=== PATIENT | male | born 1970 | race Caucasian/White ===

== ENCOUNTER → 2016-06-01 | Outpatient (CLI) | payer MEDICARE, OTHER ==
[2016-06-01 15:28] VITALS: BMI 28.3
== END | disposition home or self-care (01) ==
LOC: MNTWWP 12:41
PROVIDERS: ATTEND Family Medicine
DX: E63.9 Nutritional deficiency, unspecified (principal)

== ENCOUNTER → 2017-01-29 | Outpatient (CLI) | payer MEDICARE, OTHER ==
[2017-01-29 09:07] LABS: ALT 28 U/L (21-72); AST 69 U/L (17-59); Alkaline Phosphatase 184 U/L (38-126); Anion Gap 11 mmol/L; Blood Urea Nitrogen 22 mg/dL (9-20); Calcium 9.6 mg/dL (8.4-10.2); Carbon Dioxide 37 mmol/L (22-30); Chloride 86 mmol/L (98-107); Glucose 119 mg/dL (74-99); Non-African American GFR(MDRD) >60 (>60 ml/min/1.73 sqM); Sodium 134 mmol/L (137-145); Total Bilirubin 1.3 mg/dL (0.2-1.3); Total Protein 8.7 g/dL (6.3-8.2)
[2017-01-29 09:17] LABS: Potassium 3.5 mmol/L (3.5-5.1)
[2017-01-29 09:24] LABS: Basophils % (A) 1 %; CH 38.8; CHCM 36.3; Eosinophils # (A) 0.2 k/uL (0-0.7); Eosinophils % (A) 4 %; HCT 44.7 % (39.0-53.0); HDW 2.97; HGB 15.2 gm/dL (13.0-17.5); Luc # (Auto) 0.24; Luc % (Auto) 4; Lymphocytes # (A) 1.5 k/uL (1.0-4.8); Lymphocytes % (A) 27 %; MCH 36.7 pg (25.0-35.0); MCHC 34.1 g/dL (31.0-37.0); MCV 107.5 fL (80.0-100.0); Macrocytosis Moderate; Mean Platelet Volume 9.3; Monocytes # (A) 0.7 k/uL (0-1.0); Monocytes % (A) 13 %; Neutrophils # (A) 2.8 k/uL (1.3-7.7); Neutrophils % (A) 51 %; RBC 4.16 m/uL (4.30-5.90); RDW 14.1 % (11.5-15.5); WBC 5.5 k/uL (3.8-10.6); WBC (Perox) 5.34
== END ==
LOC: LABWHC1 07:27
PROVIDERS: ATTEND Psychiatry & Neurology Neurology
DX: G40.909 Epilepsy, unspecified, not intractable, without status epilepticus (principal); T42.6X5S Adverse effect of other antiepileptic and sedative-hypnotic drugs, sequela
CPT/HCPCS: 36415; 80053; 80177; 85025

== ENCOUNTER → 2017-09-25 | Outpatient (CLI) | payer MEDICARE, OTHER ==
[2017-09-25 11:00] VITALS: BMI 28.3
== END | disposition home or self-care (01) ==
LOC: MNTWWP 08:50
PROVIDERS: ATTEND Family Medicine
DX: E44.1 Mild protein-calorie malnutrition (principal)
CPT/HCPCS: 97802

== ENCOUNTER → 2021-08-18 | Outpatient (CLI) | payer MEDICARE, OTHER ==
[2021-08-18 18:12] LABS: African American GFR (CKD) 136.8 (60.0-200.0); Albumin 3.6 g/dL (3.8-4.9); Albumin/Globulin Ratio 0.7 (1.60-3.17); Anion Gap 10.9 mmol/L (10.00-18.00); BUN/Creat Ratio 27.72 Ratio (12.00-20.00); Blood Urea Nitrogen 15.8 mg/dL (9.0-27.0); Calcium 9.1 mg/dL (8.7-10.3); Carbon Dioxide 25.4 mmol/L (20.0-27.5); Globulin 5.1 g/dL (1.6-3.3); Non-African American GFR(CKD) 118.1 (60.0-200.0); Potassium 3.9 mmol/L (3.5-5.5); Total Bilirubin 0.9 mg/dL (0.30-1.20); Total Protein 8.6 g/dL (6.2-8.2)
[2021-08-18 18:30] LABS: INR 1.07 (0.90-1.11); Prothrombin Time 12.1 sec (9.9-11.9)
[2021-08-18 19:17] LABS: Amorphous Sediment,Urine Present /LPF (None Seen); Appearance,Urine Turbid (Clear); Bacteria,Urine 3+ /HPF (None Seen); Bilirubin,Urine Negative (Negative); Blood,Urine Large (Negative); Color,Urine Yellow (Yellow); Ketones,Urine Negative (Negative); Nitrite,Urine Negative (Negative); PH, Urine 7.5 (5.0-8.0); Specific Gravity,Urine 1.015 (1.001-1.030)
[2021-08-18 20:12] LABS: Basophils # (A) 0.02 X 10*3/uL (0.00-0.10); Basophils % (A) 0.3 %; Eosinophils # (A) 0.25 X 10*3/uL (0.04-0.35); HCT 35.4 % (39.6-50.0); HGB 11.7 g/dL (13.0-17.0); Immature Grans, Automated 0.2 %; Immature Platelet Fraction 9.7 % (1.1-6.1); Lymphocytes # (A) 2.68 X 10*3/uL (0.90-5.00); MCH 36.7 pg (27.0-32.0); MCHC 33.1 g/dL (32.0-37.0); Macrocytosis (M) 2+; Mean Platelet Volume 13.9 fL (9.5-12.2); Monocytes # (A) 0.67 X 10*3/uL (0.20-1.00); Monocytes % (A) 10.8 %; NRBC Per 100 WBC 0 /100 WBCS (0.0-0.0); Neutrophils % (A) 41.7 %; Platelet Count 64 X 10*3/uL (140-440); RBC 3.19 X 10*6/uL (4.40-5.60); RDW 14.6 % (11.5-14.5); WBC 6.23 X 10*3/uL (4.50-10.00)
== END | disposition home or self-care (01) ==
LOC: LABWHC1 12:24
PROVIDERS: ATTEND Internal Medicine Gastroenterology
DX: K74.60 Unspecified cirrhosis of liver (principal)
CPT/HCPCS: 36415; 80053; 81001; 82105; 85025; 85610; 87086

== ENCOUNTER → 2021-08-18 | Outpatient (CLI) | payer MEDICARE, OTHER | END | disposition home or self-care (01) | LOC: LABPAT 12:21 | PROVIDERS: ATTEND Urology | DX: Z53.9 Procedure and treatment not carried out, unspecified reason (principal) ==

== ENCOUNTER → 2021-08-26 | Day surgery (SDC) | payer MEDICARE, OTHER ==
--- NOTE | 2021-08-21 15:04 | P.HPIHPCON ---
History of Present Illness H&P Date: 08/21/21 Chief Complaint: Right ureteral stone This is a 51-year-old male with history of a 7 mm right-sided midureteral stone, he presented to [facility] on June 27 this year with a sepsis secondary to his ureteral stone, had a prolonged ICU admission following his s epsis. He presents today for definitive stone management. Discussed with his morning caregiver and his guardian the risk of surgery which includes but not limited to bleeding, infection, injury to the ureter. Discussed also given his history of sepsis he's at an increased risk of complications and a potential of becoming septic again following surgery. Discussed also risk from anesthesia. They understood all the risk and agreed to proceed with a right-sided ureteroscopy, with holmium laser lithotripsy, stone basketing and stent removal Consent for Procedure: I have explained the operation/procedure to the patient, including the risks, benefits, side effects, alternative therapies (including not receiving the proposed treatment or service), the likelihood of the patient achieving his/her goals, and potential recuperation problems for the procedure/sedation/analgesia, as well as any blood products, if indicated. I also explained to the patient the risks, benefits and side effects of the alternatives, as well as the risks related to not receiving the proposed procedure, care, treatment, or services. Past Medical History Past Medical History: Asthma, Seizure Disorder Additional Past Medical History / Comment(s): Severe developmentally delayed, has a peg tube,congenital quadriplegia. Incontinence. Blind, Aphasia. History of Any Multi-Drug Resistant Organisms: None Reported Additional Past Surgical History / Comment(s): peg tube Past Anesthesia/Blood Transfusion Reactions: Unable to Obtain Past Psychological History: Unable to Obtain Past Alcohol Use History: None Reported Past Drug Use History: None Reported - Past Family History Mother Family Medical History: Unable to Obtain Medications and Allergies Home Medications Medication Instructions Recorded Confirmed Type Docusate Sodium [Docusol Kids] 5 ml PEG/G-TUBE DAILY 09/10/13 02/24/15 History Famotidine [Pepcid] 20 mg PEG/G-TUBE DAILY 09/10/13 02/24/15 History Ipratropium/Albuterol Sulfate 1 ampul INHALATION BID 09/10/13 02/24/15 History [Duoneb 0.5 mg-3 mg/3 ml Soln] Loratadine [Claritin] 10 mg PEG/G-TUBE DAILY 09/10/13 02/24/15 History Polyethylene Glycol 3350 [Miralax] 1 packet PEG/G-TUBE DAILY PRN 09/10/13 02/24/15 History Valproic Acid 250 mg PEG/G-TUBE TID 09/10/13 02/24/15 History Hydrocortisone Cream 1 applic TOPICAL DAILY PRN 01/01/15 02/24/15 History [Hydrocortisone 1% Cream] Jevity 1.5 Óscar Liquid 80 ml PEG/G-TUBE DAILY 01/01/15 02/24/15 History Meclizine [Antivert] 12.5 mg PEG/G-TUBE TID 01/01/15 02/24/15 History Montelukast [Singulair] 10 mg PEG/G-TUBE HS 01/01/15 02/24/15 History Nystatin 100,000 Unit/gm Powd 1 gm TOPICAL DAILY PRN 01/01/15 02/24/15 History [Mycostatin Powder] Vitamin D(Unknown Dose) 1 tab PEG/G-TUBE DAILY 01/01/15 02/24/15 History Allergies Allergy/AdvReac Type Severity Reaction Status Date / Time eucalyptol Allergy Unknown Verified 02/24/15 08:06 [From Listerine Antiseptic] ibuprofen Allergy Unknown Verified 02/24/15 08:06 influenza virus vaccine, Allergy Unknown Verified 02/24/15 08:06 specific [Influenza Virus Vacc,Specific] menthol Allergy Unknown Verified 02/24/15 08:06 [From Listerine Antiseptic] methyl salicylate Allergy Unknown Verified 02/24/15 08:06 [From Listerine Antiseptic] phenobarbital Allergy Unknown Verified 02/24/15 08:06 phenytoin sodium Allergy Unknown Verified 02/24/15 08:06 [From Dilantin] phenytoin sodium extended Allergy Unknown Verified 02/24/15 08:06 [From Dilantin] Sulfa (Sulfonamide Allergy Unknown Verified 02/24/15 08:06 Antibiotics) thymol Allergy Unknown Verified 02/24/15 08:06 [From Listerine Antiseptic] Surgical - Exam - General no distress, no pain - Respiratory normal expansion, normal respiratory effort - Abdomen Abdomen: soft, non tender Assessment and Plan Assessment: OR for right-sided ureteroscopy, with holmium laser lithotripsy, stone basketing and stent remova
[2021-08-25 15:21] VITALS: BMI 24.1
[~2021-08-26] MED LIST: CIPROFLOXACIN/DEXTROSE PMX 400 MG in DEXTROSE/WATER 1 200ML.BAG IVPB PRN; DEXAMETHASONE SOD PHOSPHATE 4 MG/ML 1 ML VIAL IV ONE; GENTAMICIN 120 MG in SODIUM CHLORIDE 0.9% 100 ML IVPB PRN; HYDROmorphone 0.5 MG/0.5 ML SYRINGE IVP PRN; LACTATED RINGERS 1,000 ML IV SCH; LIDOCAINE 2% INJ 20 MG/ML (2 ML VIAL) ONE; MIDAZOLAM 2 MG/2 ML VIAL IV PRN; ONDANSETRON 4 MG/2 ML VIAL ONE; PROPOFOL 10 MG/ML 20 ML VIAL IV ONE; SCOPOLAMINE 1 MG/72 HR PATCH TRANSDERM ONE; fentaNYL (PF) 50 MCG/ML 2 ML AMP ONE
--- NOTE | 2021-08-26 11:55 | XR ---
KUB HISTORY: Preop lithotripsy coming kidney stone Frontal KUB submitted on 2 images There is a feeding tube in place. Double-J stent is present on the right. Overlying bowel gas obscure s underlying detail. Multiple calcifications are present superimposed over the left kidney, partial s taghorn calculus and possible renal pelvic stones, partial staghorn calculus measures approximately 1 8 and 19 mm in greatest dimension in the midpole, lower pole calcification 14 mm, upper pole 5 mm. Th ere is an underlying scoliotic curvature. Lung bases are clear. No evident pneumoperitoneum or bowel obstruction. Patient is rotated. Suspect underlying coxa valga deformities. IMPRESSION: Nephrolithiasis as described.
[2021-08-26 13:22] LABS: Basophils # (A) 0.1 k/uL (0-0.2); Basophils % (A) 1 %; Eosinophils # (A) 0.2 k/uL (0-0.7); Eosinophils % (A) 4 %; HCT 39.2 % (39.0-53.0); HGB 13.2 gm/dL (13.0-17.5); Lymphocytes # (A) 1.6 k/uL (1.0-4.8); Lymphocytes % (A) 31 %; MCH 36.8 pg (25.0-35.0); MCHC 33.7 g/dL (31.0-37.0); MCV 109.2 fL (80.0-100.0); Macrocytosis Marked; Mean Platelet Volume 9.8; Monocytes # (A) 0.4 k/uL (0-1.0); Monocytes % (A) 8 %; Neutrophils # (A) 2.8 k/uL (1.3-7.7); Neutrophils % (A) 52 %; Poikilocytosis Slight; RBC 3.59 m/uL (4.30-5.90); RDW 14.7 % (11.5-15.5); WBC 5.3 k/uL (3.8-10.6)
[2021-08-26 13:23] LABS: Platelet Count 66 k/uL (150-450)
--- NOTE | 2021-08-26 14:55 | P.OP ---
Date of Procedure: 08/26/21 Preoperative Diagnosis: Right ureteral stone, renal stones Postoperative Diagnosis: Right renal stones Procedure(s) Performed: Cystoscopy, right ureteroscopy, holmium laser lithotripsy, stent removal Implants: None Anesthesia: ROE Surgeon: Pepe Myers Estimated Blood Loss (ml): 5 Pathology: other Condition: stable Disposition: PACU Indications for Procedure: This is a 51-year-old male with history of a 7 mm right-sided midureteral stone, he presented to [facility] on June 27 this year with a sepsis secondary to his ureteral stone, had a prolonged ICU admission following his sepsis. He presents today for definitive stone management. Discussed with his customer care assistant and his guardian the risk of surgery which includes but not limited to bleeding, infection, injury to the ureter. Discussed also given his history of sepsis he's at an increased risk of complications and a potential of becoming septic again following surgery. Discussed also risk from anesthesia. They understood all the risk and agreed to proceed with a right-sided ureteroscopy, with holmium laser lithotripsy, stone basketing and stent removal Operative Findings: No stones along the ureter, multiple small stones within the kidney Description of Procedure: Patient brought to the operating room, general anesthesia was induced. He was prepped and draped in sterile fashion and placed in dorsal lithotomy position. Cystoscopy fitted with a 21-Monegasque sheath was inserted per urethra, cystoscopy was performed which showed no abnormality within the bladder. Attention was then carried to a ureteral stent which was grasped and removed intact. Next a semirigid ureteroscope was inserted through the urethra and advanced up the right ureteral orifice, the scope was advanced all the way up to the UPJ which showed no evidence of stones, pullback ureteroscopy showed no injury to the kidney or evidence of any stones. As the ureteroscope was withdrawn and a sensor wire was advanced through. Next a 1214 Monegasque access sheath was passed over the wire and into the proximal ureter. Next a flexible ureteroscope was inserted through the access sheath, renoscopy was performed showed multiple small stones throughout the kidney. Using the holmium laser the stones were dusted. Repeat renoscopy showed no sizable fragments or injury to the kidney. Pullback ureteroscopy was performed which showed no injury to the kidney or any sizable fragments. The bladder was emptied at the end of the case. Patient procedure well was taken to recovery in stable condition
[2021-08-26 15:06] VITALS: TEMP 97
--- NOTE | 2021-08-26 15:19 | FL ---
Fluoroscopy HISTORY: Lithotripsy 4 seconds fluoroscopy time supplied to the referring clinician. 1 intraoperative C-arm images docume nt the procedure. See dictated report from urology.
[2021-08-26 18:17] VITALS: BP 114/67; PULSE 67; RESP 20
== END | disposition home or self-care (01) ==
LOC: OR 11:30
PROVIDERS: ATTEND Urology
DX: N20.0 Calculus of kidney (principal); G80.8 Other cerebral palsy; J45.909 Unspecified asthma, uncomplicated; G40.909 Epilepsy, unspecified, not intractable, without status epilepticus; I10 Essential (primary) hypertension; R62.50 Unspecified lack of expected normal physiological development in childhood; Z93.1 Gastrostomy status; H54.7 Unspecified visual loss; R47.01 Aphasia; R32 Unspecified urinary incontinence; Z79.899 Other long term (current) drug therapy; Z88.2 Allergy status to sulfonamides; Z88.7 Allergy status to serum and vaccine; Z88.8 Allergy status to other drugs, medicaments and biological substances
CPT/HCPCS: 85025; 74018; 52353; C1894; C1769; J1100; J2405; J3010; J0744; J1580; J2704; J2001

== ENCOUNTER → 2022-05-22 | Outpatient (CLI) | payer MEDICARE, OTHER ==
--- NOTE | 2022-05-22 13:37 | CT ---
EXAMINATION TYPE: CT urogram wo/w con CT DLP: 1703.7 mGycm, Automated exposure control for dose reduction was used. DATE OF EXAM: 05/22/2022 11:42 AM COMPARISON: CT abdomen pelvis most recent from 05/24/2014 CLINICAL INDICATION:Male, 52 years old with history of R31., KIDNEY STONES TECHNIQUE: Urogram with imaging of the abdomen and pelvis. Coronal and sagittal reformats were performed. 2D and 3D reconstructions are performed to assist visualization of the urinary tract on a separate workstat ion. Contrast used:100 mL of Isovue 370 with IV Contrast, Oral contrast used: None. FINDINGS: LOWER CHEST: No significant findings. GENITOURINARY: RIGHT KIDNEY AND URETER: Multiple renal calculi measuring up to 4 mm. No hydronephrosis or hydrourete r. No renal mass or other lesions. No urothelial lesions: no filling defect, dilation, stricture. Mil d smooth diffuse urothelial wall thickening. LEFT KIDNEY AND URETER: Staghorn calculus along with other calculi present. Staghorn calculus measuri ng up to 12 mm x 8 mm. No hydronephrosis or hydroureter. No renal mass or other lesions. No urothelia l lesions: no filling defect, dilation, stricture. Mild smooth diffuse urothelial wall thickening. URINARY BLADDER: Partial filling of the urinary bladder with excreted IV contrast suggests some layer ing debris REPRODUCTIVE: Unremarkable. ABDOMEN LIVER: Nodular contour to the liver. GALLBLADDER AND BILE DUCTS: Layering gallstones within the gallbladder lumen. PANCREAS: Unremarkable. SPLEEN: Enlarged measuring up to 15.1 cm. ADRENAL GLANDS: Unremarkable. STOMACH AND BOWEL: . No evidence of bowel obstruction. PEG tube with distal tip in appropriate positi on. Moderate stool burden throughout the colon. PERITONEUM: No evidence of pneumoperitoneum, free fluid, or adenopathy. VASCULATURE: No evidence of aortic aneurysm. MUSCULOSKELETAL: No acute osseous abnormalities, scoliosis changes of the spine with degeneration marcela nges of the hips. LYMPH NODES: No gross evidence for lymphadenopathy. SOFT TISSUE/ABDOMINAL WALL: Unremarkable IMPRESSION: 1. No evidence of renal/urothelial neoplasm. 2. Bilateral nonobstructing renal calculi. 3. Debris within the urinary bladder correlate with bladder urinalysis. 4. Bilateral diffuse smooth urothelial thickening which could represent chronic inflammation correla te with urinalysis. 5. PEG tube in appropriate position. 6. Findings suspicious for hepatic cirrhosis with portal hypertension.
== END | disposition home or self-care (01) ==
LOC: RADCTMAIN 10:16 → EEVIPCON 11:20
PROVIDERS: ATTEND Urology
DX: N20.0 Calculus of kidney (principal); N32.89 Other specified disorders of bladder; R31.0 Gross hematuria; Z93.1 Gastrostomy status
CPT/HCPCS: 74178; 74400; Q9967

== ENCOUNTER → 2024-09-08 | Day surgery (SDC) | payer MEDICARE, OTHER ==
[2024-09-05 10:42] VITALS: BMI 48.7
[~2024-09-08] MED LIST changes: -CIPROFLOXACIN/DEXTROSE PMX 400 MG in DEXTROSE/WATER 1 200ML.BAG IVPB PRN; -DEXAMETHASONE SOD PHOSPHATE 4 MG/ML 1 ML VIAL IV ONE; -GENTAMICIN 120 MG in SODIUM CHLORIDE 0.9% 100 ML IVPB PRN; -HYDROmorphone 0.5 MG/0.5 ML SYRINGE IVP PRN; -LACTATED RINGERS 1,000 ML IV SCH; +LIDOCAINE 1% INJ 10MG/ML (20 ML MDV) ONE; -LIDOCAINE 2% INJ 20 MG/ML (2 ML VIAL) ONE; -MIDAZOLAM 2 MG/2 ML VIAL IV PRN; -ONDANSETRON 4 MG/2 ML VIAL ONE; -SCOPOLAMINE 1 MG/72 HR PATCH TRANSDERM ONE; -fentaNYL (PF) 50 MCG/ML 2 ML AMP ONE
[2024-09-08 12:18] VITALS: TEMP 97
[2024-09-08] MEDS: LACTATED RINGERS 1,000 ML IV SCH (12:48)
[2024-09-08] MEDS: IV FLUID CONTINUATION 1,000 ML IV ONE (12:50)
[2024-09-08 14:10] VITALS: RESP 16
[2024-09-08 14:25] VITALS: BP 112/56; PULSE 54
--- NOTE | 2024-09-08 14:25 | P.PCN ---
Date of Procedure: 09/08/24 Procedure(s) Performed: PREOPERATIVE DIAGNOSIS: Malfunctioning PEG tube POSTOPERATIVE DIAGNOSIS: Same PROCEDURE: EGD with PEG tube replacement SURGEON: Cheryl EBL: None ANESTHESIA: Sedation COMPLICATIONS: None OPERATIVE PROCEDURE: The patient was placed in the supine position on the endoscopy table. The patient was sedated per anesthesia that time. The Olympus gastroscope was inserted into the oropharynx and passed under direct visualization to the region of the duodenum. No obstruction was seen. The pylorus was widely patent. The stomach was carefully inspected. The stomach was fully insufflated with air. The patient's PEG tube was in place. This was a replacement 24 [place] Pa catheter. This was removed without difficulty. The gastrostomy was present in the anterior body of the stomach. A new 20 [place]i nonballoon replacement was advanced without difficulty. The dual port feeding adapter was applied. The bolster was tightened. There was no bleeding there. A sterile dressing was applied. DISPOSITION: Stable to recovery room
== END ==
LOC: ORWHC2ENDO 11:34
PROVIDERS: ATTEND Surgery
DX: K94.23 Gastrostomy malfunction (principal); J45.909 Unspecified asthma, uncomplicated; G40.909 Epilepsy, unspecified, not intractable, without status epilepticus; K21.9 Gastro-esophageal reflux disease without esophagitis; I10 Essential (primary) hypertension; G80.9 Cerebral palsy, unspecified; Z87.442 Personal history of urinary calculi; Z88.2 Allergy status to sulfonamides; Z88.6 Allergy status to analgesic agent; Z88.8 Allergy status to other drugs, medicaments and biological substances; Z79.899 Other long term (current) drug therapy; Y83.8 Other surgical procedures as the cause of abnormal reaction of the patient, or of later complication, without mention of misadventure at the time of the procedure
CPT/HCPCS: 43246; J2003; J2704